=== PATIENT | male | born 1975 | race Caucasian/White ===

== ENCOUNTER 2025-02-27 08:43 | Emergency (ER) | payer OTHER, SELFPAY ==
[2025-02-27] MEDS ORDERED: HYDROcodone/Acetaminophen 10/325 mg Tablet ONE (10:16)
== END 2025-02-27 11:10 | disposition home or self-care (01) ==
LOC: NAV ERS 08:43
DX: M54.50 Low back pain, unspecified (principal); I10 Essential (primary) hypertension; Z79.899 Other long term (current) drug therapy; X50.0XXA Overexertion from strenuous movement or load, initial encounter
CPT/HCPCS: 96372; 99283; J2919

== ENCOUNTER 2025-03-01 02:15 | Emergency (ER) | payer OTHER ==
[2025-03-01] MEDS ORDERED: Orphenadrine Citrate 60 MG/2 ML VIAL ONE (02:50)
== END 2025-03-01 03:10 | disposition home or self-care (01) ==
LOC: NAV ERS 02:15
DX: M62.838 Other muscle spasm (principal); I10 Essential (primary) hypertension; Z79.899 Other long term (current) drug therapy
CPT/HCPCS: 96372; 99283; J2360

== ENCOUNTER 2025-03-02 09:24 | Emergency (ER) | payer OTHER ==
[2025-03-02] MEDS ORDERED: Ketorolac Tromethamine 30 MG (1 mL) VIAL ONE (09:54)
[2025-03-02] MEDS ORDERED: Cyclobenzaprine 10 MG TAB ONE (10:18)
== END 2025-03-02 12:40 | disposition home or self-care (01) ==
LOC: NAV ERS 09:24
DX: M79.604 Pain in right leg (principal); M51.26 Other intervertebral disc displacement, lumbar region; M51.46 Schmorl's nodes, lumbar region; I10 Essential (primary) hypertension; Z79.899 Other long term (current) drug therapy; Z55.6 Problems related to health literacy
CPT/HCPCS: 72131; 72192; 96372; 99283; J1885; J2270

== ENCOUNTER 2025-03-11 10:20 | Emergency (ER) | payer OTHER | END 2025-03-11 12:45 | disposition home or self-care (01) | LOC: NAV ERS 10:20 | DX: M54.50 Low back pain, unspecified (principal); G89.29 Other chronic pain; I10 Essential (primary) hypertension; Z79.899 Other long term (current) drug therapy | CPT/HCPCS: 99283 ==